=== PATIENT | male | born 1950 | race Caucasian/White ===

== ENCOUNTER 2017-06-04 11:01 | Emergency (ER) | payer OTHER ==
[2017-06-04 11:03] VITALS: BP 137/70; PULSE 72; RESP 14; TEMP 98.2; O2SAT 99
[2017-06-04] MEDS ORDERED: ATEN25TA PO (11:45)
[2017-06-04] MEDS ORDERED: ISOS30TA17 PO (11:45)
--- NOTE | 2017-06-04 11:46 | PD ---
HPI . Refill request Chief Complaint: Medical Clearance Time Seen by Provider: 11:17 Travel History International Travel<30 days: No Contact w/Intl Traveler<30days: No Traveled to known affect area: No History of Present Illness HPI This patient presents requesting a refill of his atenolol and Imdur. He has been out of both for about a week. He states that he has recently moved to the area. He is [facility] but has not yet become established with the local [facility]. The patient states that he generally feels poorly for the last couple of days but has no specific complaints. He denies chest pain, shortness of breath, peripheral edema. PFSH Social History Tobacco Use: No Allergies-Medications (Allergen,Severity, Reaction): Coded Allergies: Penicillins (Verified Allergy, Unknown, 06/04/17) propoxyphene (Verified Allergy, Unknown, 06/04/17) Review of Systems Except as stated in HPI: all other systems reviewed are Neg Physical Exam Narrative GENERAL: Awake and alert and in no acute distress. SKIN: Warm and dry. HEAD: Normocephalic/atraumatic. EYES: Pupils are equal. Extraocular movements are intact. NECK: Normal range of motion. CARDIOVASCULAR: Regular rate and rhythm. RESPIRATORY: Nonlabored respirations. MUSCULOSKELETAL: Atraumatic. NEUROLOGICAL: Nonfocal. PSYCHIATRIC: Appropriate mood and affect. Data Data Last Documented VS Vital Signs Date Time Temp Pulse Resp B/P (MAP) Pulse Ox O2 Delivery O2 Flow Rate FiO2 06/04/17 11:03 98.2 72 14 137/70 (92) 99 MDM Medical Decision Making Medical Screen Exam Complete: Yes Emergency Medical Condition: Yes Differential Diagnosis Differential diagnosis of refill request includes but is not limited to drug seeking behavior, poor planning, financial problems, travel, no primary care physician Narrative Course This patient presents requesting a refill for atenolol and Imdur. I will refill these medications. Diagnosis Primary Impression: Medication refill Med/Other Pt SpecificInfo: Prescription(s) given Scripts Isosorbide Dinitrate (Isosorbide Dinitrate) 30 Mg Tab 1 TAB PO DAILY, #30 Prov: Peyton Solano MD 06/04/17 Atenolol (Atenolol) 25 Mg Tab 25 MG PO DAILY for Blood Pressure Management, #30 TAB Prov: Peyton Solano MD 06/04/17 Disposition: 01 DISCHARGE HOME Condition: Stable Peyton Solano MD Jun 04, 2017 11:46
== END 2017-06-04 12:52 | disposition home or self-care (01) ==
LOC: NEPD 11:01
DX: Z76.0 Encounter for issue of repeat prescription (principal); Z88.0 Allergy status to penicillin
CPT/HCPCS: 99281

== ENCOUNTER 2017-09-29 10:59 | Emergency (ER) | payer OTHER ==
[~2017-09-29] VITALS: Ht 185.4 cm; Wt 85.0 kg
[~2017-09-29 10:59] MED LIST: ATEN25TA PO; ISOS30TA17 PO
[2017-09-29 11:00] VITALS: BP 148/85; PULSE 87; RESP 16; TEMP 98.1; O2SAT 98
[2017-09-29] MEDS ORDERED: UNK CHOLESTEROL (11:22)
[2017-09-29] MEDS ORDERED: TETANUS/DIPHTHERIA TOXOID ADULT 0.5 ML VIAL IM ONE (11:30)
[2017-09-29] MEDS ORDERED: LIDOCAINE HCL 1% PF 30 ML VIAL INFIL ONE (11:30)
--- NOTE | 2017-09-29 11:31 | PD ---
HPI Chief Complaint: Injury Time Seen by Provider: 11:23 Travel History International Travel<30 days: No Contact w/Intl Traveler<30days: No Traveled to known affect area: No History of Present Illness HPI 67-year-old male presents to the emergency room for evaluation of right second toe pain and injury that occurred yesterday. Patient states he accidentally hit the bottom of the toe on a concrete curb while stepping up into his house cutting the area. He soaked the wound prior to coming to ED. Denies significant pain or paresthesias. Unknown last tetanus. Denies history of diabetes. PFSH Past Medical History High Cholesterol: Yes Hypertension: Yes Parkinson's Disease: Yes Tetanus Vaccination: Unknown Family History Family Hypercholesterolemia: Yes Social History Alcohol Use: Yes Tobacco Use: Yes Substance Use: No Allergies-Medications (Allergen,Severity, Reaction): Coded Allergies: Sulfa (Sulfonamide Antibiotics) (Verified Allergy, Severe, 09/29/17) Penicillins (Verified Allergy, Unknown, 06/04/17) propoxyphene (Verified Allergy, Unknown, 06/04/17) Reported Meds & Prescriptions Reported Meds & Active Scripts Active Isosorbide Dinitrate 30 Mg Tab 1 Tab PO DAILY Atenolol 25 Mg Tab 25 Mg PO DAILY Reported [Unk Cholesterol] DAILY Review of Systems Except as stated in HPI: all other systems reviewed are Neg Physical Exam Narrative GENERAL: Well-nourished, well-developed male in no acute distress. Afebrile. Ambulatory. SKIN: Focused skin assessment warm/dry. There is a 1 cm laceration on the plantar aspect of the right second toe. HEAD: Normocephalic. EYES: No scleral icterus. No injection or drainage. NECK: Supple, trachea midline. No JVD or lymphadenopathy. CARDIOVASCULAR: Regular rate and rhythm without murmurs, gallops, or rubs. RESPIRATORY: Breath sounds equal bilaterally. No accessory muscle use. MUSCULOSKELETAL: No cyanosis. Minimal edema localized to the right second distal phalanx of the toe. Mild tenderness to palpation. Less than 2 second capillary refill distally. Limited range of motion secondary to pain and laceration. Data Data Last Documented VS Vital Signs Date Time Temp Pulse Resp B/P (MAP) Pulse Ox O2 Delivery O2 Flow Rate FiO2 09/29/17 11:00 98.1 87 16 148/85 (106) 98 Orders Orders Wound Care (09/29/17 11:26) Toe (Min 2vws) (09/29/17 ) Tetanus/Diphtheria Tox Adult (Tetanus/Di (09/29/17 11:30) Lidocaine Pf 1% Inj (Xylocaine-Mpf 1% In (09/29/17 11:30) Ed Discharge Order (09/29/17 13:03) Cephalexin (Keflex) (09/29/17 13:15) MDM Medical Decision Making Medical Screen Exam Complete: Yes Emergency Medical Condition: Yes Medical Record Reviewed: Yes Differential Diagnosis Laceration, contusion, abrasion, fracture, open fracture Narrative Course 67-year-old male presents to the emergency room for evaluation of right second toe pain and laceration that occurred yesterday afternoon. Patient cut it on a concrete curb. No history of diabetes. Tetanus updated in the emergency room. There are 2 1 cm lacerations on the plantar aspects of the second and third toes. Wounds thoroughly cleansed. X-ray shows fracture of the distal phalanx of the second toe. After significant irrigation with Betadine and saline, wound was repaired, see procedure note for details. Patient given first dose of Keflex in the emergency room. Discharged with Keflex and told to return in 2 days for wound recheck and dressing change. Stressed the importance of keeping the wound clean to prevent losing the toe. He understands and agrees to plan. Procedures Procedure Narrative LACERATION LOCATION: Right second plantar toe LENGTH: 1 cm NUMBER OF STITCHES/MEHDI: 6 simple interrupted REPAIR: The area of the laceration was prepped with Betadine and sterilely draped. The laceration was infiltrated with 1% lidocaine. The wound was copiously irrigated and explored without evidence of foreign body, tendon injury or neurovascular injury. The wound was closed using 5-0 Ethilon. This was a single layer repair. A sterile dressing was applied. The patient was advised to keep the dressing clean and dry. Patient tolerated the procedure well. LACERATION LOCATION: Right third plantar toe LENGTH: 1 cm NUMBER OF STITCHES/MEHDI: 4 REPAIR: The area of the laceration was prepped with Betadine and sterilely draped. The laceration was infiltrated with 1% lidocaine. The wound was copiously irrigated and explored without evidence of foreign body, tendon injury or neurovascular injury. The wound was closed using 5-0 Ethilon. This was a single layer repair. A sterile dressing was applied. The patient was advised to keep the dressing clean and dry. Patient tolerated the procedure well. Diagnosis Primary Impression: Open fracture Additional Impression: Toe laceration Qualified Codes: S91.114A - Laceration without foreign body of right lesser toe(s) without damage to nail, initial encounter Referrals: Correctional Officer Chief Additional Instructions: Keep wound clean and dry. Apply triple antibiotic ointment daily. Return in 2 days for wound recheck and dressing change unless he can follow-up with your primary care physician or benzene still utility operator within that time. Return in 10 days to have sutures removed. Follow-up with a primary care physician. Disposition: 01 DISCHARGE HOME Condition: Stable Michelle Bowling Sep 29, 2017 11:31
--- NOTE | 2017-09-29 11:57 | RADRPT ---
EXAM DATE: 09/29/2017 11:51 AM EDT AGE/SEX: 67 years / Male INDICATIONS: Right foot, second digit toe pain after hitting it on a concrete block. CLINICAL DATA: This is the patient's initial encounter. Patient reports that signs and symptoms have been present for 2 days and indicates a pain score of 6/10. MEDICAL/SURGICAL HISTORY: None. None. COMPARISON: No prior exams available for comparison. FINDINGS: There is an oblique fracture through the distal phalanx of the second toe. Fracture is nondisplaced. There is approximately 5 mm of separation of the fracture fragments. No joint dislocation is demonstr ated. There is some degenerative changes involving the right foot. There is soft tissue swelling invo lving the second toe. CONCLUSION: There is an oblique fracture through the distal phalanx of the second toe. Electronically signed by: Felix Fritz MD 09/29/2017 11:56 AM EDT
[2017-09-29] MEDS ORDERED: CEPH-460 PO (13:07)
[2017-09-29] MEDS ORDERED: CEPHALEXIN MONOHYDRATE 500 MG CAP PO ONE (13:15)
== END 2017-09-29 14:10 | disposition home or self-care (01) ==
LOC: NEPK 10:59
DX: S92.531B Displaced fracture of distal phalanx of right lesser toe(s), initial encounter for open fracture (principal); E78.00 Pure hypercholesterolemia, unspecified; I10 Essential (primary) hypertension; G20 Parkinson's disease; W22.8XXA Striking against or struck by other objects, initial encounter; Z23 Encounter for immunization; Z79.899 Other long term (current) drug therapy; Z88.2 Allergy status to sulfonamides; Z88.0 Allergy status to penicillin; Z88.8 Allergy status to other drugs, medicaments and biological substances
CPT/HCPCS: 12001; 73660; 90471; 90714

== ENCOUNTER 2017-10-01 12:35 | Emergency (ER) | payer OTHER ==
[~2017-10-01] VITALS: Ht 185.4 cm; Wt 80.0 kg
[~2017-10-01 12:35] MED LIST changes: +CEPH-460 PO; +UNK CHOLESTEROL
[2017-10-01 12:43] VITALS: BP 137/69; PULSE 75; RESP 16; TEMP 98.4; O2SAT 96
[2017-10-01] MEDS ORDERED: CLINDAMYCIN PHOS 600 MG/4 ML VIAL IM ONE (13:30)
--- NOTE | 2017-10-01 13:35 | PD ---
Data Data Last Documented VS Vital Signs Date Time Temp Pulse Resp B/P (MAP) Pulse Ox O2 Delivery O2 Flow Rate FiO2 10/01/17 12:43 98.4 75 16 137/69 (91) 96 Orders Orders Clindamycin Inj (Cleocin Inj) (10/01/17 13:30) Mandatory Outpatient Referral (10/01/17 13:41) Shoe Post Op (10/01/17 ) Wound Care (10/01/17 13:44) Shoe Cast (10/01/17 ) Ed Discharge Order (10/01/17 14:33) MDM Supervised Visit with TRAVON: Yes Narrative Course Patient seen and examined by me in addition to Daphne Byrne. Patient has mildly reddened toe, which i think is more consistent with bruising. Appears comfortable. Discussed adding antibiotic and return to ED in 2 days for revaluation. At this time the erythema does no extend past the MTP joint. No discharge from wound. No significant swelling. Additional Instruction: Return to ED in 48 hours for wound check. Scripts Clindamycin (Clindamycin) 150 Mg Cap 450 MG PO Q6H for Infection for 10 Days, #120 CAP 0 Refills Prov: Daphne Byrne CHAIN TENDER 10/01/17 Disposition: 01 DISCHARGE HOME Condition: Stable Bentley Salgado MD Oct 01, 2017 13:35
[2017-10-01] MEDS ORDERED: CLIN150C14 PO (13:36)
--- NOTE | 2017-10-01 13:41 | PD ---
HPI Chief Complaint: Wound/Suture/Staple Re-Check Time Seen by Provider: 12:55 Travel History International Travel<30 days: No Contact w/Intl Traveler<30days: No Traveled to known affect area: No History of Present Illness HPI 67-year-old male presents to the emergency department for recheck of right second and third toe laceration. His right second toe with an open fracture. He was seen on September 29 and was told to return for recheck today. He denies fever, vomiting. Denies any increase in pain. Has been taking Keflex as prescribed. He has not changed the dressing. He has been walking on the dressing with a barefoot. Denies paresthesias, loss of sensation to the affected extremity. He says he has no pain unless the toes removed. He has not been taking any other medications, besides the Keflex. Symptoms are mild to moderate in severity. Primary care provider is Dr. Varner. History of hypertension. Allergies to penicillin, sulfa, propoxyphene. Has no other medical complaints. No other modifying factors or associated signs and symptoms. PFSH Past Medical History High Cholesterol: Yes Hypertension: Yes Parkinson's Disease: Yes Family History Family Hypercholesterolemia: Yes Social History Alcohol Use: Yes Tobacco Use: Yes Substance Use: No Allergies-Medications (Allergen,Severity, Reaction): Coded Allergies: Sulfa (Sulfonamide Antibiotics) (Verified Allergy, Severe, 10/01/17) Penicillins (Verified Allergy, Unknown, 10/01/17) propoxyphene (Verified Allergy, Unknown, 10/01/17) Reported Meds & Prescriptions Reported Meds & Active Scripts Active Clindamycin (Clindamycin HCl) 150 Mg Cap 450 Mg PO Q6H 10 Days Isosorbide Dinitrate 30 Mg Tab 1 Tab PO DAILY Atenolol 25 Mg Tab 25 Mg PO DAILY Reported [Unk Cholesterol] DAILY Review of Systems Except as stated in HPI: all other systems reviewed are Neg Physical Exam Narrative GENERAL: Well-nourished, well-developed elderly, male patient, in no acute distress; afebrile, nontoxic-appearing SKIN: Warm and dry. Right second and third toe lacerations to the bottom of each toe are well approximated and with sutures intact, no drainage noted; the toes are with erythema and edema-I cannot differentiate if this is infection or soft tissue swelling; there is some warmth to touch to the toes. No lymphangitis. The foot is without edema, erythema. Right lower extremity is supple and non-tense with 2+ pedal pulse and sensory intact and without erythema or edema. HEAD: Atraumatic. Normocephalic. EYES: Pupils equal and round. No scleral icterus. No injection or drainage. ENT: Mucosa pink and moist. Airway patent. NECK: Trachea midline. CARDIOVASCULAR: Regular rate. RESPIRATORY: No accessory muscle use. GASTROINTESTINAL: Flat. MUSCULOSKELETAL: No obvious deformities. No clubbing. No cyanosis. No edema. NEUROLOGICAL: Awake and alert. Oriented 3. No obvious cranial nerve deficits. Motor grossly within normal limits. Normal speech. PSYCHIATRIC: Appropriate mood and affect; insight and judgment normal. Data Data Last Documented VS Vital Signs Date Time Temp Pulse Resp B/P (MAP) Pulse Ox O2 Delivery O2 Flow Rate FiO2 10/01/17 12:43 98.4 75 16 137/69 (91) 96 Orders Orders Clindamycin Inj (Cleocin Inj) (10/01/17 13:30) Mandatory Outpatient Referral (10/01/17 13:41) Shoe Post Op (10/01/17 ) Wound Care (10/01/17 13:44) Shoe Cast (10/01/17 ) Ed Discharge Order (10/01/17 14:33) [facility] Medical Decision Making Medical Screen Exam Complete: Yes Emergency Medical Condition: Yes Medical Record Reviewed: Yes Differential Diagnosis Encounter for laceration recheck, wound infection, cellulitis Narrative Course 67-year-old male that was seen on September 29 with a right second toe open fracture and a third toe laceration. He returns today for wound recheck. The toes are erythematous and edematous. There is no lymphangitis and there is no drainage from the laceration sites. Lacerations are well approximated with sutures intact. Dr. Salgado evaluated the patient and plan of care discussed. Clindamycin IM 600 mg administered in the ER. The foot was soaked and cleaned and wound care provided and dressing applied. Patient was given a postop shoe for support. I have for the patient pain medication and he declined. Instructed patient to stop taking Keflex and to start taking clindamycin. I instructed patient to return to the emergency department in 2 days for reevaluation, if he could not follow-up with PCP or commercial singer. I discussed wound care and dressing changes. he verbalized understanding and agreement. Instructed patient to follow up with primary care provider. Patient verbalizes understanding and agreement with treatment plan. Patient is medically cleared and stable for discharge. Discussed reasons to return to the emergency department. Patient agrees with treatment plan. The patients vital signs are stable and the patient is stable for outpatient follow-up and treatment. Patient discharged home, stable and in no acute distress. Diagnosis Primary Impression: Encounter for re-check of laceration wound Referrals: [facility] Lead Housekeeper Primary Care Physician Patient Instructions: Care For Your Stitches (ED), General Instructions, Laceration (ED), Toe Fracture (ED) Additional Instructions: Stop taking Keflex Start clindamycin Keep area clean and dry Limit right foot activity to decrease risk of sutures coming undone Ibuprofen or Tylenol as directed and as needed for pain/inflammation Ice pack to area as needed to decrease pain Fracture shoe for support Return to the emergency department in 2 days for wound recheck Return to the emergency department in 1 week for suture removal Follow up with primary care provider within 1-2 days Follow-up with commercial singer in 1-2 days; call to make an appointment Return to the emergency department immediately with worsening of symptoms, particularly if reddened streaks up or down the affected extremity from the suture site, fever, numbness/tingling in the affected extremity, loss of sensation in the affected extremity, severe swelling of the affected Med/Other Pt SpecificInfo: Prescription(s) given, Med Stopped Scripts Clindamycin (Clindamycin) 150 Mg Cap 450 MG PO Q6H for Infection for 10 Days, #120 CAP 0 Refills Prov: Daphne Byrne 10/01/17 Disposition: 01 DISCHARGE HOME Condition: Stable Daphne Byrne Oct 01, 2017 13:41
== END 2017-10-01 14:59 | disposition home or self-care (01) ==
LOC: NEPK 12:35
DX: Z48.00 Encounter for change or removal of nonsurgical wound dressing (principal); S91.114D Laceration without foreign body of right lesser toe(s) without damage to nail, subsequent encounter; X58.XXXD Exposure to other specified factors, subsequent encounter
CPT/HCPCS: 96372; 99281; L3260

== ENCOUNTER 2017-10-11 10:11 | Inpatient (IN) ==
[2017-10-15 16:51] VITALS: BP 133/76; PULSE 75; RESP 20; TEMP 97.3; O2SAT 94
== END 2017-10-15 20:25 | disposition home health service (06) ==
LOC: NEPD 10:11 → NEDA 10:11 → NEPGCP 16:53
PROVIDERS: ADMIT Hospitalist; ATTEND Hospitalist